=== PATIENT | female | born 1960 | race Caucasian/White ===

== ENCOUNTER 2016-08-19 09:44 | Emergency (ER) | payer OTHER ==
[~2016-08-19 09:44] MED LIST: LORT5TAB PO; PREV30CA36 PO; Z.0.NO CURRENT MEDS
[2016-08-19 09:50] VITALS: BP 143/89; PULSE 82; RESP 16; TEMP 97.9; O2SAT 95
[2016-08-19] MEDS ORDERED: SODIUM CHLORIDE 0.9% FLUSH 5 ML FLUSH IVF PRN (10:00)
[2016-08-19] MEDS ORDERED: KETOROLAC TROMETHAMINE 30 MG/ML (IVP) VIAL IV PUSH ONE (10:00)
[2016-08-19 10:02] LABS: AUTOMATED NEUTROPHIL # 2.8 TH/MM3 (1.8-7.7); BASOPHIL # 0.1 TH/MM3 (0-0.2); BASOPHIL % 0.8 % (0.0-2.0); EOSINOPHIL # 0.1 TH/MM3 (0-0.4); HEMATOCRIT 43.2 % (35.0-46.0); HEMO FLAGS DIFF FINAL; LYMPH % 43.3 % (9.0-44.0); LYMPHOCYTE # 2.7 TH/MM3 (1.0-4.8); MEAN CELL VOLUME 88.4 FL (80.0-100.0); MEAN CORPUSCULAR HEMOGLOBIN 29.7 PG (27.0-34.0); MEAN CORPUSCULAR HGB CONC 33.5 % (32.0-36.0); MONO % 10.1 % (0.0-8.0); NEUT % 44.8 % (16.0-70.0); PLATELET COUNT 355 TH/MM3 (150-450); RED BLOOD COUNT 4.89 MIL/MM3 (4.00-5.30); RED CELL DISTRIBUTION WIDTH 11.8 % (11.6-17.2); WHITE BLOOD COUNT 6.3 TH/MM3 (4.0-11.0)
--- NOTE | 2016-08-19 10:07 | PD ---
HPI Chief Complaint: Chest Pain Time Seen by Provider: 09:53 Travel History International Travel<30 days: No Contact w/Intl Traveler<30days: No History of Present Illness HPI 56-year-old female with history of HTN here a complaint of chest pain. Overnight she developed a left inframammary sharp, pleuritic chest pain. Worse with movement, deep inspiration. She has tried aspirin, antacids at home without improvement. Patient notes that she is currently packing her home in preparation for upcoming moving. She denies any recent travel, sick contacts. No associated shortness of breath, nausea, vomiting. Denies any history of DVT , PE. No known history of cardiac disease. PFSH Past Medical History Diminished Hearing: No Hypertension: Yes Past Surgical History Other Surgery: Yes (lymph node removed neck as a child) Social History Alcohol Use: No Tobacco Use: No Allergies-Medications (Allergen,Severity, Reaction): Coded Allergies: Codeine (Verified Allergy, Unknown, 08/25/03) Reported Meds & Prescriptions Reported Meds & Active Scripts Active Lortab 5/500 (Acetaminophen/Hydrocodone Bitart) 5 Mg/500 Mg Tab 1 Tab PO QIDPRN Prevacid (Lansoprazole) 30 Mg Capcr 30 Mg PO DAILY Reported No Current Meds (Miscellaneous Medication) Misc 0 Review of Systems Except as stated in HPI: all other systems reviewed are Neg Physical Exam Narrative GENERAL: Well-appearing female in no acute distress SKIN: Warm and dry. HEAD: Normocephalic. EYES: No scleral icterus. No injection or drainage. ENT Mucous membranes pink and moist. NECK: Supple CARDIOVASCULAR: Regular rate and rhythm. No murmur appreciated. Reproducible tenderness to palpation of the left lower sternal margin RESPIRATORY: No accessory muscle use. Clear to auscultation. Breath sounds equal bilaterally. GASTROINTESTINAL: Abdomen soft, non-tender, nondistended. Obese MUSCULOSKELETAL: No edema. NEUROLOGICAL: Awake and alert. Motor grossly within normal limits. Normal speech. PSYCHIATRIC: Appropriate mood and affect; insight and judgment normal. Data Data Last Documented VS Vital Signs Date Time Temp Pulse Resp B/P Pulse Ox O2 Delivery O2 Flow Rate FiO2 08/19/16 10:15 72 137/84 140/87 08/19/16 09:50 16 08/19/16 09:50 97.9 95 Orders Electrocardiogram (08/19/16 09:53) Basic Metabolic Panel (Bmp) (08/19/16 09:53) Ckmb (Isoenzyme) Profile (08/19/16 09:53) Complete Blood Count With Diff (08/19/16 09:53) D-Dimer (08/19/16 09:53) Magnesium (Mg) (08/19/16 09:53) Prothrombin Time / Inr (Pt) (08/19/16 09:53) Act Partial Throm Time (Ptt) (08/19/16 09:53) Troponin I (08/19/16 09:53) Chest, Single Ap (08/19/16 09:53) Ecg Monitoring (08/19/16 09:53) Bilateral Bp Monitoring (08/19/16 09:53) Iv Access Insert/Monitor (08/19/16 09:53) Oximetry (08/19/16 09:53) Sodium Chloride 0.9% Flush (Ns Flush) (08/19/16 10:00) Ketorolac Inj (Toradol Inj) (08/19/16 10:00) Ct Pulmonary Angiogram (08/19/16 10:19) Iohexol 350 Inj (Omnipaque 350 Inj) (08/19/16 10:50) Labs Laboratory Tests Test 08/19/16 09:50 White Blood Count 6.3 TH/MM3 Red Blood Count 4.89 MIL/MM3 Hemoglobin 14.5 GM/DL Hematocrit 43.2 % Mean Corpuscular Volume 88.4 FL Mean Corpuscular Hemoglobin 29.7 PG Mean Corpuscular Hemoglobin 33.5 % Concent Red Cell Distribution Width 11.8 % Platelet Count 355 TH/MM3 Mean Platelet Volume 7.3 FL Neutrophils (%) (Auto) 44.8 % Lymphocytes (%) (Auto) 43.3 % Monocytes (%) (Auto) 10.1 % Eosinophils (%) (Auto) 1.0 % Basophils (%) (Auto) 0.8 % Neutrophils # (Auto) 2.8 TH/MM3 Lymphocytes # (Auto) 2.7 TH/MM3 Monocytes # (Auto) 0.6 TH/MM3 Eosinophils # (Auto) 0.1 TH/MM3 Basophils # (Auto) 0.1 TH/MM3 CBC Comment DIFF FINAL Differential Comment Prothrombin Time 10.5 SEC Prothromb Time International 1.0 RATIO Ratio Activated Partial 25.8 SEC Thromboplast Time D-Dimer Quantitative (PE/DVT) 0.82 MG/L FEU Sodium Level 142 MEQ/L Potassium Level 3.9 MEQ/L Chloride Level 107 MEQ/L Carbon Dioxide Level 26.7 MEQ/L Anion Gap 8 MEQ/L Blood Urea Nitrogen 13 MG/DL Creatinine 0.93 MG/DL Estimat Glomerular Filtration 63 ML/MIN Rate Random Glucose 98 MG/DL Calcium Level 9.2 MG/DL Magnesium Level 2.2 MG/DL Total Creatine Kinase 94 U/L Troponin I LESS THAN 0.02 NG/ML MDM Medical Decision Making Medical Screen Exam Complete: Yes Emergency Medical Condition: Yes Medical Record Reviewed: Yes Differential Diagnosis 56-year-old female with reproducible tenderness to palpation of the left lateral inferior sternal margin since last night, worse with movement and deep inspiration. Differential includes musculoskeletal, costochondritis, PE, ACS and less likely GERD or dissection. Narrative Course Patient placed on monitor, IV established and blood obtained. A twelve-lead EKG shows sinus rhythm without notable ST abnormalities, normal intervals. Patient had taken aspirin prior to arrival. Given 30 mg Toradol IV here. Portable chest x-ray was obtained that by my read shows no acute abnormalities. CBC, BMP, magnesium, CK-MB, troponin, coags, d-dimer notable for d-dimer slightly elevated 0.82. Therefore CT pulmonary angiogram obtained and showed no evidence of PE. Pulmonary nodule which will need outpatient follow-up. Patient has a right lower lung infiltrate, interestingly her pain is on the left side. We'll treat nonetheless. Diagnosis Primary Impression: Pneumonia Qualified Code: J18.1 - Pneumonia of right lower lobe due to infectious organism Additional Impression: Costochondritis Referrals: Primary Care Physician as needed Additional Instructions: Finish antibiotics as prescribed. Tylenol, ibuprofen as needed for pain. On the CT of your lungs today there was an incidental 7 mm pulmonary nodule in the right lower lung. Recommend outpatient CT/PET scan in a nonemergent basis. Follow-up with primary care provider for same. Med/Other Pt SpecificInfo: Prescription(s) given Scripts Levofloxacin (Levaquin)750 Mg [id number] Mg PO DAILY 7 Days Ref 0 Prov:Rut Judge MD 08/19/16 Disposition: 01 DISCHARGE HOME Condition: Stable Rut Judge MD Aug 19, 2016 10:07
[2016-08-19 10:10] LABS: CHLORIDE 107 MEQ/L (98-107); POTASSIUM 3.9 MEQ/L (3.5-5.1); SODIUM (NA) 142 MEQ/L (136-145)
[2016-08-19 10:13] LABS: ANION GAP 8 MEQ/L (5-15); BICARBONATE 26.7 MEQ/L (21.0-32.0); BLOOD UREA NITROGEN 13 MG/DL (7-18); MAGNESIUM 2.2 MG/DL (1.5-2.5)
[2016-08-19 10:15] VITALS: BP_SYST 137; BP_SYST 140; BP_DIAS 84; BP_DIAS 87; PULSE 72
[2016-08-19 10:16] LABS: APTT (PATIENT) 25.8 SEC (24.3-30.1); GLOMERULAR FILTRATION RATE 63 ML/MIN (>89); PROTHROMBIN TIME - PATIENT 10.5 SEC (9.8-11.6)
[2016-08-19 10:22] LABS: CREATINE KINASE 94 U/L (26-192)
--- NOTE | 2016-08-19 10:27 | RADHPO ---
EXAM DATE/TIME: 08/19/2016 10:12 [facility] COMPARISON: No previous studies available for comparison. INDICATIONS : Chest pain, short of breath MEDICAL HISTORY : Hypertension. SURGICAL HISTORY : None. ENCOUNTER: Initial ACUITY: 1 day PAIN SCORE: 7/10 LOCATION: Bilateral chest FINDINGS: A single view of the chest demonstrates the lungs to be symmetrically aerated without evidence of mas s, infiltrate or effusion. There is mild linear atelectasis in the right lung base. The cardiomediast inal contours are unremarkable. Osseous structures are intact. CONCLUSION: Mild left lower lung atelectasis. Otherwise, no other acute pulmonary infiltrates. Todd Burris MD on August 19, 2016 at 10:25 Board Certified Radiologist. This report was verified electronically.
[2016-08-19] MEDS ORDERED: IOHEXOL 350 MG/ML 10 ML VIAL (for RAD DIAG) IV ONE (10:50)
--- NOTE | 2016-08-19 11:00 | RADHPO ---
EXAM DATE/TIME: 08/19/2016 10:34 [facility] COMPARISON: No previous studies available for comparison. INDICATIONS : Left sided chest pain today. IV CONTRAST: 70 cc Omnipaque 350 (iohexol) IV RADIATION DOSE: 19.13 CTDIvol (mGy) MEDICAL HISTORY : Hypertension. SURGICAL HISTORY : None. ENCOUNTER: Initial ACUITY: 1 day PAIN SCALE: 6/10 LOCATION: Left chest TECHNIQUE: Volumetric scanning of the chest was performed using a pulmonary embolism protocol MIP images were re constructed. Using automated exposure control and adjustment of the mA and/or kV according to patien t size, radiation dose was kept as low as reasonably achievable to obtain optimal diagnostic quality images. FINDINGS: PULMONARY ARTERIES: No filling defects are seen in the pulmonary arteries through the segmental level. LUNGS: There is a solitary 7 mm pulmonary nodule in the peripheral right lower lung. There is a parenchymal infiltrate in the posterior medial right lower lung as well as some bibasilar atelectasis. The rest o f the lung coffman are grossly clear. PLEURAE: There is no pleural thickening or pleural effusion. MEDIASTINUM: There is good visualization of the great vessels of the middle mediastinum. No evidence of mediastin al or hilar adenopathy/mass. MUSCULOSKELETAL: Within normal limits for patient age. MISCELLANEOUS: The visualized upper abdominal organs demonstrate no acute abnormality. CONCLUSION: 1. No evidence of PE. 2. Single 7 mm pulmonary nodule right lower lung. This finding is nonspecific. Recommend a PET/CT to evaluate for focal hypermetabolic activity. This can be performed on a nonemergent outpatient basis. 3. Mild right lower lung infiltrate 4. Bibasilar atelectasis. Todd Burris MD on August 19, 2016 at 10:53 Board Certified Radiologist. This report was verified electronically.
[2016-08-19 11:15] VITALS: RESP 14
[2016-08-19] MEDS ORDERED: LEVA750T PO (11:31)
[2016-08-19 11:44] VITALS: BP 140/87
--- NOTE | 2016-08-19 13:23 | EKG ---
Date Performed: 08/19/2016 Time Performed: 09:48:44 PTAGE: 56 years EKG: Sinus rhythm Lateral ST-T changes are nonspecific Low QRS voltages in precordial leads Compared to prior tracing no significant change Borderline ECG PREVIOUS TRACING : 01/06/2009 09.19 DOCTOR: Iban Hallman Interpretating Date/Time 08/19/2016 13:17:55
== END 2016-08-19 11:48 | disposition home or self-care (01) ==
LOC: PHED 09:44
DX: J18.9 Pneumonia, unspecified organism (principal); M94.0 Chondrocostal junction syndrome [Tietze]; I10 Essential (primary) hypertension; Z79.899 Other long term (current) drug therapy
CPT/HCPCS: 71010; 71275; 80048; 82550; 83735; 84484; 85025; 85379; 85610; 85730; 93005; 96374; 99284; J1885; Q9967